=== PATIENT | female | born 1955 | race Caucasian/White ===

== ENCOUNTER 2017-06-19 10:16 | Day surgery (SDC) | payer MEDICARE, BC ==
[2017-06-19 10:45] VITALS: BMI 34.9
--- NOTE | 2017-06-19 10:51 | CP.SDSHP ---
Same Day Surgery H & P - Previous Medical/Surgical History Endocrine/Metabolic: Diabetes Previous Surgical History: low anterior resection - Allergies Allergies: Allergies No Known Allergies Allergy (Unverified 01/26/14 17:30) Short Stay Discharge - Short Stay Discharge Admitting Diagnosis/Reason for Visit: PERSONAL HISTORY OF MALIGNANT NEOPLASM OF LARGE IN Disposition: HOME/ ROUTINE
[2017-06-19] MEDS ORDERED: Propofol 10 mg/ml Inj (20 ML) ONE (12:33)
[2017-06-19] MEDS ORDERED: Lactated Ringer's 500 ML IV SCH (13:00)
[2017-06-19 13:26] VITALS: TEMP 97.5; O2SAT 100
[2017-06-19 13:52] VITALS: RESP 12
[2017-06-19 13:59] VITALS: PULSE 51
[2017-06-19 14:14] VITALS: BP 123/36
== END 2017-06-19 14:13 | disposition home or self-care (01) ==
LOC: C.ENDO 10:16
PROVIDERS: ATTEND Colon & Rectal Surgery
DX: D12.2 Benign neoplasm of ascending colon (principal); K62.1 Rectal polyp; K64.8 Other hemorrhoids; Z85.038 Personal history of other malignant neoplasm of large intestine
CPT/HCPCS: 45380; 82948; 88305; J2704; J3010; J7120

== ENCOUNTER 2017-08-02 16:50 | Emergency (ER) | payer MEDICARE, BC ==
[2017-08-02 16:50] VITALS: BMI 34.9
[2017-08-02 16:57] VITALS: BP 139/66; PULSE 59; RESP 18; TEMP 97.8; O2SAT 100
[2017-08-02] MEDS ORDERED: Tmp-Smz 800 mg-160 mg DS Tab PO STA (17:23)
--- NOTE | 2017-08-02 17:26 | C.PDOC ---
History Of Present Illness 62 yo female w/PMHx of NIDDM come in for evaluation of Right thumb pain, swelling gradually developed for past few days around nail. Otherwise, pt denies known trauma or injury, fever, chills, denies deformity, weakness, sensory or vascular deficits to Right hand. Ambulate to ED for evaluation, not in any apparent distress. FBSB on triage 128 Time Seen by Provider: 08/02/17 17:13 Chief Complaint (Nursing): Finger,Hand,&Wrist History Per: Patient Onset/Duration Of Symptoms: Gradual Past Medical History Reviewed: Historical Data, Nursing Documentation, Vital Signs Vital Signs: Last Vital Signs Temp 97.8 F 08/02/17 16:54 Pulse 59 L 08/02/17 16:54 Resp 18 08/02/17 16:54 BP 139/66 08/02/17 16:54 Pulse Ox 100 08/02/17 16:54 - Medical History PMH: Anemia, Arthritis (BOTH KNEES), Colonic Polyps, Gastritis, HTN, Hypercholesterolemia, Osteoporosis Denies: Chronic Kidney Disease - [facility] Procedures INCIS W REM OF FORIEGN BODY OR DEV FROM SKIN & SUBCUT TISSUE (12/14/14) Family History: States: No Known Family Hx - Social History Hx Tobacco Use: No Hx Alcohol Use: No - Immunization History Hx Tetanus Toxoid Vaccination: No Hx Influenza Vaccination: No Hx Pneumococcal Vaccination: No Review Of Systems Except As Marked, All Systems Reviewed And Found Negative. Constitutional: Negative for: Fever, Chills ENT: Negative for: Throat Pain Gastrointestinal: Negative for: Nausea, Vomiting, Abdominal Pain Musculoskeletal: Positive for: Other (Right thumb pain) Skin: Positive for: Lesions Neurological: Negative for: Weakness, Numbness Physical Exam - Physical Exam Appears: Well, Non-toxic, No Acute Distress Skin: Normal Color, Warm Head: Normacephalic Extremity: Normal ROM (Right hand), Tenderness (mild tenderness over lateral aspetc of nail rIght thumb with mild localized edema, erythema, no flactulance. No proximal streaking, no evidence of felon.), Capillary Refill (less than 2sec to Right thumb), No Deformity Neurological/Psych: Oriented x3, Normal Speech, Normal Motor, Normal Sensation, Normal Reflexes ED Course And Treatment O2 Sat by Pulse Oximetry: 100 Progress Note: On re-evaluation, pt is afebrile, hemodynamicaly stable. Non- toxic. Skin: (+) exam c/w Right thumb paronychia, no felon, no flactulance. FAROM of Right thumb, no neurovascular deficits. Neurologicaly intact.. Pt advised. ref. to f/u with PMD in 2-3 days for re-eavl. return if any new changes. Disposition Counseled Patient/Family Regarding: Diagnosis, Need For Followup, Rx Given - Disposition Referrals: Moo Santamaria MD [Medical Doctor] - Disposition Time: 17:26 Condition: STABLE Additional Instructions: Warm salty water finger soaks 2-3 times daily for 5 minutes Take medication as prescribed Follow up with PMD in 2-3 days for re-evaluation. Return to ED if any worsening or new changes. Prescriptions: Sulfamethoxazole/Trimethoprim [Bactrim DS 800 mg-160 mg] 1 tab PO BID #14 tab Instructions: Paronychia (ED) Forms: [employer] (Kinyarwanda) - Clinical Impression Clinical Impression: Paronychia
[2017-08-02] MEDS ORDERED: Tmp-Smz 800 mg-160 mg DS Tab ONE (17:31)
== END 2017-08-02 17:38 | disposition home or self-care (01) ==
LOC: C.ER 16:50
DX: L03.011 Cellulitis of right finger (principal)

== ENCOUNTER 2018-12-31 09:26 | Day surgery (SDC) | payer MEDICARE, BC ==
--- NOTE | 2018-12-31 08:45 | CP.SDSHP ---
Same Day Surgery H & P - History Proposed Procedure: colonoscopy - Previous Medical/Surgical History Endocrine/Metabolic: Diabetes Previous Surgical History: sigmoid resection - Allergies Allergies: Allergies No Known Allergies Allergy (Verified 12/30/18 11:56) - Date & Time Date: 12/31/18 Time: 08:44 Short Stay Discharge - Short Stay Discharge Admitting Diagnosis/Reason for Visit: HISTORY OF COLON CARCINOMA Disposition: HOME/ ROUTINE
[2018-12-31 09:53] VITALS: BMI 31.9
[2018-12-31 10:37] VITALS: O2SAT 100
[2018-12-31] MEDS ORDERED: Midazolam 2 MG/2 ML VIAL ONE (11:01)
[2018-12-31] MEDS ORDERED: Propofol 10 mg/ml Inj (20 ML) ONE (11:02)
[2018-12-31 12:06] VITALS: TEMP 98
[2018-12-31 12:14] VITALS: BP 132/48; PULSE 64; RESP 12
== END 2018-12-31 12:47 | disposition home or self-care (01) ==
LOC: C.ENDO 09:26
PROVIDERS: ATTEND Colon & Rectal Surgery
DX: Z12.11 Encounter for screening for malignant neoplasm of colon (principal); Z85.038 Personal history of other malignant neoplasm of large intestine; K57.30 Diverticulosis of large intestine without perforation or abscess without bleeding; K64.8 Other hemorrhoids; Z98.0 Intestinal bypass and anastomosis status; I10 Essential (primary) hypertension; E11.9 Type 2 diabetes mellitus without complications; E78.5 Hyperlipidemia, unspecified; M81.0 Age-related osteoporosis without current pathological fracture; I25.10 Atherosclerotic heart disease of native coronary artery without angina pectoris; J45.909 Unspecified asthma, uncomplicated; M19.90 Unspecified osteoarthritis, unspecified site; E03.9 Hypothyroidism, unspecified
CPT/HCPCS: 82948; G0105; J2250; J2704; J3010